=== PATIENT | male | born 1990 | race Caucasian/White ===

== ENCOUNTER → 2020-06-14 | Outpatient (CLI) | payer OTHER ==
[2020-05-06 13:43] VITALS: BP 156/90
[~2020-06-14] MED LIST: IBUP-1027 PO; OMEP20TA63 PO; OXYC-325 PO; SUCR1TAB PO
== END ==
LOC: LAB 15:01
PROVIDERS: ATTEND Surgery
DX: Z01.812 Encounter for preprocedural laboratory examination (principal); K80.20 Calculus of gallbladder without cholecystitis without obstruction; Z20.828 Contact with and (suspected) exposure to other viral communicable diseases
CPT/HCPCS: U0003